=== PATIENT | male | born 1955 | race Hispanic/Latino ===

== ENCOUNTER 2022-07-21 01:51 | Emergency (ER) | payer MEDICARE, BC, SELFPAY ==
[2022-07-21] VITALS (8 sets, daily range): BP systolic 92–128; BP diastolic 56–69; PULSE 67–89; RESP 16–18; TEMP 36.6; O2SAT 92–97; BMI 34.7
--- NOTE | 2022-07-21 03:25 | ED.WOUNDLAC ---
HPI - Wound/Laceration General Chief Complaint: Wound/Laceration Stated Complaint: bleeding tongue Time Seen by Provider: 07/21/22 03:25 Source: patient and EMS Mode of arrival: EMS History of Present Illness HPI narrative: Patient is a 58-year-old male history of hypertension presenting today with tongue bleeding. He reports that a he had a cancer growth removed about 6 days ago. Tonight he spontaneously had some bleeding that was profusely bleeding for about 10 minutes. EMS was called. He has been applying gauze to his mouth for the last hour and half and he has no further bleeding. He is not on any antiplatelet or anticoagulation medications. Review of Systems Review of Systems ROS Unobtainable: All systems reviewed & are unremarkable except as noted in HPI and below Patient History Social History Smoking Status: Never smoker Smoking Status: Never smoker alcohol intake frequency: a few times a month Substance Use Type: does not use Exam Initial Vital Signs Initial Vital Signs: Vital Signs Temperature 97.8 F 07/21/22 01:56 Pulse Rate 82 07/21/22 01:56 Respiratory Rate 16 07/21/22 01:56 Blood Pressure 113/69 07/21/22 01:56 Pulse Oximetry 92 07/21/22 01:56 Oxygen Delivery Method Room Air 07/21/22 01:56 GENERAL: Alert well-appearing 58-year-old male MOUTH: No active bleeding surgery site seen he is in the healing process CARDIOVASCULAR: peripheral pulses in tact, cap refill <2 sec RESPIRATORY: No respiratory distress, speaks in full sentences without difficulty EXTREMITIES: Normal range of motion, no clubbing or edema. Neurovascularly intact NEUROLOGICAL: Cranial nerves II through XII grossly intact. Normal gait and speech. SKIN: Warm, dry, no petechiae, no rashes or lesions. Course Vital Signs Vital signs: Vital Signs - 8 hr 07/21/22 01:56 07/21/22 01:58 07/21/22 01:58 Temperature 97.8 F Pulse Rate 82 67 Respiratory Rate 16 Blood Pressure 113/69 106/63 Pulse Oximetry 92 94 Oxygen Delivery Method Room Air 07/21/22 02:00 07/21/22 02:01 07/21/22 02:01 Temperature Pulse Rate 75 76 Respiratory Rate Blood Pressure 113/69 Pulse Oximetry 94 94 Oxygen Delivery Method 07/21/22 02:30 07/21/22 02:31 07/21/22 02:31 Temperature Pulse Rate 89 84 Respiratory Rate Blood Pressure 92/56 L Pulse Oximetry 94 94 Oxygen Delivery Method 07/21/22 03:00 07/21/22 03:00 07/21/22 03:49 Temperature 97.8 F Pulse Rate 78 78 Respiratory Rate 18 Blood Pressure 104/56 L 128/61 Pulse Oximetry 95 97 Oxygen Delivery Method Room Air MDM - Wound/Laceration MDM Narrative Medical decision making narrative: Patient 58-year-old male presenting today with tongue bleeding status post day 6. For cancerous removal. After an hour and half in the emergency department and pressure with gauze bleeding has stopped. He is manage his secretions time. At this time no further indication for workup or intervention is needed. Discharge Plan Departure Patient Disposition: Home Clinical Impression: Hemorrhage of tongue Instructions: DI for Minor Laceration Activity Restrictions/Additional Instructions: *You have been diagnosed with tongue bleeding *What to do: At this time if you should have bleeding again apply pressure with gauze. You may rinse mouth out with cool water or ice water. Please follow instructions from your surgeon *Continue to take medications as directed *Follow up with your primary care provider in 2-3 days or call [phone] *Return to ER if you should have persistent bleeding more than 30-60 minutes despite above practices difficulty breathing or any new, worsening or concerning symptoms Referrals: Damon Fried MD [Primary Care Provider] - Stand Alone Forms: Patient Portal/API
== END 2022-07-21 03:51 | disposition home or self-care (01) ==
PROVIDERS: Emergency Provider Emergency Medicine; PCP Otolaryngology Plastic Surgery within the Head & Neck
DX: K14.8 Other diseases of tongue (principal)
CPT/HCPCS: 99281